=== PATIENT | female | born 1965 | race Caucasian/White ===

== ENCOUNTER 2022-09-07 22:32 | Emergency (ER) | payer BC, SELFPAY ==
[2022-09-07 22:34] VITALS: BP 127/78; PULSE 117; RESP 19; TEMP 37.9; O2SAT 97; BMI 54.1
[2022-09-07 22:36] VITALS: BP 127/78; PULSE 106; RESP 17; TEMP 37.9; O2SAT 97
[2022-09-07] MEDS: Ondansetron 4 MG/2 ML Vial IV (23:22)
[2022-09-07] MEDS: Morphine 4 MG/ML Syringe IV (23:22)
[2022-09-07] MEDS: 0.9% Normal Saline 1,000 ML 1000 ML IV (23:22)
[2022-09-07 23:29] LABS: Mucous, Urine 0 SEEN /hpf (<or=2+)
[2022-09-07 23:31] LABS: Anion Gap 9 (5-15); BUN 10 mg/dL (7-18); BUN/Creat Ratio 12.5 RATIO (10-20); Calcium,Total 8.4 mg/dL (8.5-10.1); Chloride 104 mmol/L (98-107); EST Glomerular Filtration Rate 79 mL/min (>60); Est Glom Filt Rate - Afr Amer 96 mL/min (>60); Estimated Creatinine Clearance 69.42 ml/min; Glucose 114 mg/dL (74-106); Potassium 3.4 mmol/L (3.5-5.1); Sodium Level 135 mmol/L (136-145)
--- NOTE | 2022-09-07 23:40 | EDS_ITS ---
HPI History of Present Illness Chief Complaint: Fever Informant: patient Onset/Context/Timing Onset: Weeks (1) Context: Gradual Onset Timing: Continuous and Waxes and wanes Quality: Stabbing Location: Low back Worsened by: Nothing Relieved by: Heating pad Narrative Narrative: Patient presents with low back pain and fever that has been constant for the past week. Patient states it has been waxing and waning. Patient describes her pain as stabbing. Patient states it is in her lower lumbar area. Patient states it is better with a heating pad. Patient states her fever was up to 102 at home earlier this week. Patient states that Tylenol seems to help with that. Patient admits to some urinary frequency and hesitancy. Patient states she feels like she has to urinate all the time but is only able to urinate small amounts. Patient denies any dysuria. Patient does admit to a mild headache. Patient denies any nausea or vomiting. PFSH PFSH Medical History no medical history no medical history Home Medications hydrocodone-acetaminophen 5-325mg 5mg-325mg 1 tab PO Q6H PRN PRN Pain 3 days #10 TABLETS 09/08/22 [Rx Last Taken Unknown] Allergy/AdvReac Type Severity Reaction Status Date / Time No Known Allergies Allergy Unverified 09/07/22 22:37 Surgical History Hx of section Social History Smoking Status: Current every day smoker tobacco type: cigarettes alcohol intake: never ROS ROS ED Constitutional Constitutional ED: Reports fever(s); Denies chills Eyes Eyes: Denies blurry vision or change in vision ENT ENT ED: Denies rhinorrhea or sore throat Cardiovascular Cardiovascular: Denies chest pain or palpitations Respiratory/Chest Respiratory/Chest: Denies cough or dyspnea Gastrointestinal Gastrointestinal: Denies nausea or vomiting Genitourinary Genitourinary ED: Reports urinary frequency; Denies dysuria or hematuria Musculoskeletal Musculoskeletal: Reports back pain; Denies neck pain Integumentary Denies abscess or rash Neurologic Neurologic: Reports headache(s); Denies weakness Allergic/Immunologic Allergic/Immunologic ED: Denies mouth swelling or urticaria EXAM Physical Exam Const Vital Signs: 09/07/22 22:34 09/07/22 22:36 09/07/22 23:02 Temperature 100.2 F H 100.2 F H Temperature Source Oral Temporal Pulse Rate 117 H 106 H Respiratory Rate 19 H 17 Respiratory Effort Normal Non-Labored Respiratory Pattern Normal Blood Pressure 127/78 H 127/78 H Blood Pressure Mean 94 94 Pulse Ox 97 97 Oxygen Delivery Method Room Air Room Air Positive well nourished and well developed General Appearance ED: well developed and NAD HEENT Reports moist mucous membranes Neck supple and no JVD Resp normal respiratory effort and clear to auscultation bilaterally Cardio regular rate, regular rhythm and no murmurs GI normal to inspection, nondistended, normoactive bowel sounds Palpation: soft and tender suprapubic; Negative for guarding or rebound tenderness present Extremity normal to inspection General Extremety ED: Negative for edema or tenderness General Extremity: Negative for edema Neuro oriented x3, CN's II-XII intact bilaterally and no sensory deficits noted Sensorium / Orientation: alert Motor Exam: strength 5/5 throughout Psych mental status grossly normal Skin no rashes or lesions noted MDM MDM MDM Narrative Medical decision making narrative: Differential diagnosis includes urinary tract infection, ureteral calculus, diverticulitis, colitis, and bowel obstruction. CBC will be obtained to assess for leukocytosis and anemia. Basic metabolic profile will be obtained to assess for electrolyte abnormality and renal function. Urinalysis will be obtained to assess for urinary tract infection and hematuria. Lab Data Attestation: I reviewed the patient's lab results. Lab results narrative: CBC was reviewed and shows a slight anemia with a hemoglobin of 11.9 and hemato crit 33.3. Basic metabolic profile was reviewed and was essentially within normal limits. Urinalysis was reviewed. There is no evidence of urinary tract infection or hematuria. Labs: Laboratory Results - last 24 hr 09/07/22 09/07/22 09/07/22 23:10 23:10 23:25 WBC 5.6 RBC 3.90 L Hgb 11.9 L Hct 33.3 L MCV 85.4 MCH 30.5 MCHC 35.7 RDW Std Deviation 37.6 RDW Coeff of [place] 12.3 Plt Count 164 MPV 9.5 Immature Gran % (Auto) 1.100 H Neut % (Auto) 68.0 Lymph % (Auto) 21.2 [place] % (Auto) 8.8 Eos % (Auto) 0.7 Baso % (Auto) 0.2 Absolute Neuts (auto) 3.8 Absolute Lymphs (auto) 1.18 Nucleated RBC % 0 Sodium 135 L Potassium 3.4 L Chloride 104 Carbon Dioxide 22.0 Anion Gap 9 BUN 10 Creatinine 0.80 Estim Creat Clear Calc 69.42 Est GFR (MDRD) Af Amer 96 Est GFR (MDRD) Non-Af 79 BUN/Creatinine Ratio 12.5 Glucose 114 H Calcium 8.4 L Urine Color Yellow Urine Clarity Clear Urine pH 6.0 Ur Specific [place] 1.015 Urine Protein 100 H Urine Glucose (UA) Normal Urine Ketones Negative Urine Occult Blood 50 H Urine Nitrite Negative Urine Bilirubin Negative Urine Urobilinogen 1 H Ur Leukocyte Esterase 25 H Urine RBC 0-5 SEEN Urine WBC 0-5 SEEN Ur Squamous Epith Cells 0-5 SEEN Urine Bacteria RARE Urine Mucus 0 SEEN Radiography Diagnostic Testing: Clinical Impression(s) from Imaging Studies Abdomen/Pelvis CT 09/08/22 01:20 IMPRESSION: 1. No acute intra-abdominal abnormality Electronically Signed: Hollis Fraser MD at 1:49 EDT , CT scan of the abdomen pelvis was obtained. There is no free air or free fluid. There is no evidence of perforation or obstruction. There is no ureteral calculus noted. There is no hydronephrosis or hydroureter. This was interpreted by the radiologist and was also independently reviewed by myself. Treatment and Re-Evaluation :: Patient was given IV fluids, morphine, and Zofran. Patient was also given a dose of Tylenol for her temperature of 100.2. Patient was advised of her findings. Patient was feeling better on reevaluation. Patient was instructed to continue Tylenol as needed for any fevers. Patient was given a prescription for a short course of [place] to take as needed for pain. Patient was instructed to follow-up with her primary care physician in 5 to 7 days. Patient understood and was agreeable with plan. All questions were answered. Discharge Plan Triage Chief Complaint: Fever ED Provider: Rolan Song Dx/Rx/DC Orders Clinical Impression: Febrile illness, Pelvic pain Instructions: ED FUO Adult, ED Pelvic Pain, Unknown Cause Prescriptions: New hydrocodone-acetaminophen [hydrocodone-acetaminophen] 5-325 mg tablet 1 tab PO Q6H PRN PRN (Reason: Pain) 3 Days Qty: 10 0RF Primary Care Provider: Care Physician,No Primary Referrals: Care Physician,No Primary [Primary Care Provider] - Disposition Disposition: Home, Self Care
[2022-09-07 23:42] LABS: Absolute Lymphocyte Count 1.18 X10^3/uL (0.83-4.51); Absolute Neutrophil Count 3.8 X10^3/uL (2.0-7.7); Basophil# 0.01 X10^3/uL; Basophil% 0.2 % (0-1); Eosinophil# 0.04 X10^3/uL; Eosinophils% 0.7 % (0-5); Hematocrit 33.3 % (37-47); Hemoglobin 11.9 g/dL (12.0-15.0); Lymphocyte # 1.18 X10^3/ul (0.83-4.51); Lymphocyte % 21.2 % (19-41); Mean Corp Hgb Conc 35.7 g/dL (32-36); Mean Corpuscular Hgb 30.5 pg (27.0-32.0); Mean Corpuscular Volume 85.4 fL (81-99); Mean Platelet Vol. 9.5 fl (6.2-12.0); Monocyte# 0.49 X10^3/uL; Monocyte% 8.8 % (0-10); NRBC Flagged by Analyzer 0 % (0-5); Neutrophil # 3.78 X10^3/uL (2.7-7.7); Platelet Count 164 K/mm3 (150-450); RBC Distribution Width CV 12.3 % (11.6-14.6); RBC Distribution Width SD 37.6 fl (35.1-43.9); White Blood Count 5.6 K/mm3 (4.4-11.0)
[2022-09-07 23:57] LABS: Glucose, Dipstick Normal (Normal); Ketone-Dipstick Negative (Negative); Leukocyte Esterase-Dipstick 25 /ul (Negative); Nitrite-Dipstick Negative (Negative); Occult Blood-Urine 50 /ul (Negative); Protein-Dipstick 100 mg/dl (Negative); Specific Gravity, Urine 1.015 (1.002-1.030); Urine Bilirubin Dipstick Negative (Negative); Urine Urobilinogen 1 mg/dl (Normal)
[2022-09-07] MEDS: Acetaminophen 500 MG Tablet 1000 MG PO (23:58)
[2022-09-08 00:17] LABS: Color, Urine Yellow (Yellow); Urine Clarity Clear (Clear)
[2022-09-08 00:24] LABS: Bacteria RARE /hpf (None Seen); Red Blood Cells-Urine 0-5 SEEN /hpf (0-5); Squamous Epithelial Cells - UA 0-5 SEEN /hpf (5-10); White Blood Cells 0-5 SEEN /hpf (0-5)
--- NOTE | 2022-09-08 01:20 | CT_ITS ---
STUDY: CT ABDOMEN AND PELVIS WITH CONTRAST REASON FOR EXAM: Female, 56 years old. Low back pain RADIATION DOSAGE (If Supplied By Facility): CTDIvol = ( 12.69 ) mGy, DLP = ( 612.54 ) mGycm TECHNIQUE: Spiral CT imaging of the abdomen and pelvis was performed with intravenous contrast material ( / ), followed by coronal and sagittal reformatting. Individualized dose optimization techniques were used for this CT. COMPARISON: No relevant priors. FINDINGS: LOWER CHEST: Bilateral dependent atelectasis at the lung bases.. LIVER: Normal GALLBLADDER AND BILIARY TREE: Normal gallbladder. Normal biliary ductal system. SPLEEN: Normal PANCREAS: Normal ADRENAL GLANDS: Normal KIDNEYS AND URETERS: Normal kidneys. Normal ureters. BOWEL: Normal stomach. Normal small bowel. Normal discs. Normal colon. PERITONEUM: No free intraperitoneal air or fluid. No intra-abdominal fluid collection. LYMPH NODES: No mesenteric, retroperitoneal, or pelvic lymphadenopathy. VESSELS: Normal URINARY BLADDER: Normal REPRODUCTIVE ORGANS: Normal ABDOMINAL WALL: Normal BONES: Normal CT/Abdomen/Pelvis without Cont IMPRESSION: 1. No acute intra-abdominal abnormality Electronically Signed: Hollis Fraser MD at 1:49 EDT ,
[2022-09-08 02:18] VITALS: BP 124/67; PULSE 72; RESP 18; TEMP 36.8; O2SAT 100
== END 2022-09-08 02:19 | disposition home or self-care (01) ==
PROVIDERS: Emergency Provider Emergency Medicine; Visit Provider Emergency Medicine
DX: R50.9 Fever, unspecified (principal); R35.0 Frequency of micturition; R39.11 Hesitancy of micturition; R51.9 Headache, unspecified; R10.2 Pelvic and perineal pain; F17.210 Nicotine dependence, cigarettes, uncomplicated
CPT/HCPCS: 74176; 80048; 81001; 85025; 96361; 96374; 96375; 99284; J2405